=== PATIENT | male | born 1960 | race Caucasian/White ===

== ENCOUNTER 2019-08-14 17:11 | Observation (INO) ==
[2019-08-14] MEDS ORDERED: DUONEB (A & A) INH PRN (20:44)
[2019-08-14 21:49] LABS: BASO# 0.01 X1000 (0.0-0.2); BASO% 0.2 % (0.0-0.8); EOS# 0.01 X1000 (0.0-0.7); EOS% 0.2 % (0.0-10.0); HEMATOCRIT 39.9 % (42.0-52.0); HEMOGLOBIN 13.3 g/dL (14.0-18.0); LYMPH# 0.75 X1000 (1.2-3.4); LYMPH% 11.7 % (20.5-51.1); MCH 30.3 PG (27-31); MCHC 33.3 g/dL (33-37); MCV 90.9 FL (81-99); MONO# 0.08 X1000 (0.11-0.59); MONO% 1.3 % (1.7-9.3); MPV 10.1 FL (7.4-10.4); NEUT# 5.54 X1000 (1.4-6.5); NEUT% 86.6 % (42.2-75.2); PLT 254 X1000 (130-400); RBC 4.39 XMIL (4.7-6.1); RDW 14.5 % (11.5-14.5); WBC 6.39 X1000 (4.8-10.8)
--- NOTE | 2019-08-14 21:51 | Diag Imaging Result Doc PS360 ---
EXAM: CHEST-PORTABLE INDICATION: Pneumonia TECHNIQUE: One view COMPARISON: 08/14/2019 FINDINGS: The lungs are grossly clear. There is no discrete pleural fluid collection or pneumothorax. The cardiomediastinal silhouette and central vasculature are grossly unremarkable. IMPRESSION: No evidence of acute pathology by plain radiograph. Electronically signed by Tom Petit 08/14/2019 9:48 PM
[2019-08-14 21:56] LABS: AGAP 12; ALB/GLOB RATIO 1.1; ALKALINE PHOSPHATASE 73 U/L (32-122); BUN 17 mg/dL (8-22); CALCIUM 8.8 mg/dL (8.8-10.2); CHLORIDE 106 mmol/L (98-107); COSMO 279; CREATININE 0.9 mg/dL (0.7-1.2); ESTIMATED GFR > 60; GLUCOSE 133 mg/dL (70-104); GOT 30 U/L (10-34); GPT 29 U/L (10-44); SODIUM 138 mmol/L (136-145); TCO2 20 mmol/L (25-35); TOTAL BILIRUBIN 0.16 mg/dL (0.20-1.00); TOTAL PROTEIN 7.5 g/dL (6.3-8.3)
[2019-08-14] MEDS ORDERED: MUCINEX PO ONE (22:26)
[2019-08-14] MEDS: TYLENOL PO PRN (23:03)
[2019-08-14] MEDS ORDERED: DUONEB (A & A) INH SCH (23:30)
[2019-08-15] MEDS: DUONEB (A & A) INH SCH ×4 (03:25→21:02)
--- NOTE | 2019-08-15 04:57 | HISTORY AND PHYSICAL ---
PRIMARY CARE PROVIDERS: NKECHI Oliver. CHIEF COMPLAINT: Direct admit for pneumonia. HISTORY OF PRESENT ILLNESS: Mr. Jeffrey is a 58-year-old male who carries a past medical history of bipolar disorder, recently discharged from [facility] for agitated, aggressive behavior, hypertension, congestive heart failure, shunt, GERD, gallstones. The patient went to see his primary care provider today, NKECHI Oliver, requested that he be directly admitted secondary to having pneumonia. However, our over-read from their chest x-ray shows that the lungs appear grossly clear and are stable compared to previous study. There is no fluid collection or pneumothorax. There is a prominent pericardial fat pad noted incidentally. The cardiomediastinal silhouette and central vascular are unremarkable otherwise. This is compared to the same exam that he had done on 08/12/2019. He also had a pulmonary arteriogram on 08/12 that showed no evidence of PE and minimal atelectasis. Per his primary care provider at the bedside, he had been treated 1 month ago with bronchitis, on 08/12 for whatever reason, he was given Augmentin. The patient refused to take it secondary to just being on this medication and it gave him diarrhea, so he refused to take it. He does report that when he lays down flat, he gestures toward his nose and stated that he was unable to breathe when he lies down flat. When I asked him if he was wheezing, he said no. A lot of his answers were prompted by his caregiver, unsure if he is just a poor historian. He did state that there was some coughing, wheezing and shortness of breath once prompted by his physician assistant primary care. He does not know if he has had any temperatures. He does report at times that he gets cold a lot. She does report that he has a learning disability. He is also hard of hearing secondary to a right busted ear drum and she did report on Monday night he had a temperature of 101 degrees, but has not had a temp since then. She also reports O2 sats anywhere from 79 to 80 percent at home. Currently, he is sitting on the side of the bed, he is breathing comfortably. His lung sounds are completely clear and his O2 saturations are 95% on room air and he is afebrile at 98.2 with 18 respirations. PAST MEDICAL HISTORY: Per HPI. PAST SURGICAL HISTORY: Shunt placement. SOCIAL HISTORY: He does have sitters. He is unable to read or write. He does have a learning disability. He is bipolar. No tobacco, alcohol or illicit drug use. FAMILY HISTORY: Unknown. REVIEW OF SYSTEMS: Completely negative except for those mentioned in HPI. PHYSICAL EXAMINATION: VITAL SIGNS: Temperature is 98.2 degrees, heart rate 89, respirations 18, blood pressure 136/84, O2 is 95% on room air. GENERAL: Mr. Jeffrey is a 58-year-old male who is hard of hearing. HEENT: Atraumatic, normocephalic. PERRL. NECK: Supple. Trachea midline. CARDIOVASCULAR: S1, S2 appreciated. No murmurs, gallops, rubs noted. RESPIRATORY: Lung sounds clear bilaterally. ABDOMEN: Soft, nontender, nondistended. Positive bowel sounds 4 quadrants. EXTREMITIES: Lower extremities negative for edema. NEUROLOGIC: The patient is sitting up on the side of the bed, awake, alert, oriented. He does answer questions. However, he is also prompted by the sitter who is at the bedside as well. Unsure if this is due to his intellectual ability. DIAGNOSTICS: Laboratory studies have been ordered. Chest x-ray that was taken today at the doctor's office shows that the lungs are grossly clear, we are currently doing a repeat. ASSESSMENT AND PLAN: 1. Direct admission was for failed outpatient treatment of pneumonia. However, imaging as well as no white count on 08/12, this could be residual from his bronchitis that he had a month ago. Per his caregiver at bedside, he did receive a steroid shot today. We will continue with aggressive pulmonary toilet, supplemental O2 if needed, bronchodilators. We have obtained blood cultures, new CBC and CMP. Try to obtain sputum cultures. 2. Hypertension, stable. 3. Congestive heart failure, not in exacerbation. 4. Gastroesophageal reflux disease. 5. Bipolar disorder with aggressive behaviors. Continue home medications when reconciled. 6. Gallstones, not complaining of any abdominal pain. 7. Further recommendations to follow physician evaluation, laboratory and diagnostic data. Further recommendations to follow laboratory and diagnostic data. Dictated by NKECHI Levine for William Alvarado MD I have performed a face to face diagnostic evaluation. Labs/xrays- reviewed. Exam: Chest-clear CV- regular. Acute bronchitis - Admit, check blood cultures, duo nebs. Dr. Alvarado cc: MD Ludwin Wilkinson CRNP MTDD
--- NOTE | 2019-08-15 06:33 | Diag Imaging Result Doc PS360 ---
CHEST-PORTABLE - 08/15/2019 INDICATION: Pneumonia COMPARISON: 08/14/2019 FINDINGS: Lung volumes are lower. There is some stable strandy atelectasis in the lateral left lung base. No new infiltrates. Heart size remains normal. There is probably a trace left pleural effusion. IMPRESSION: Lower lung volumes, otherwise no change from prior. Electronically signed by Obdulio Strange 08/15/2019 6:31 AM
[2019-08-15 08:01] LABS: HEMATOCRIT 38.7 % (42.0-52.0); HEMOGLOBIN 12.8 g/dL (14.0-18.0); LYMPH# 1.39 X1000 (1.2-3.4); LYMPH% 28.4 % (20.5-51.1); MCHC 33.1 g/dL (33-37); MCV 90.8 FL (81-99); MONO# 0.39 X1000 (0.11-0.59); NEUT# 3.12 X1000 (1.4-6.5); NEUT% 63.6 % (42.2-75.2); PLT 250 X1000 (130-400); RBC 4.26 XMIL (4.7-6.1); RDW 14.4 % (11.5-14.5)
[2019-08-15 08:32] LABS: AGAP 12; ALB/GLOB RATIO 1.1; ALBUMIN 3.9 g/dL (3.5-5.0); ALKALINE PHOSPHATASE 68 U/L (32-122); BUN 20 mg/dL (8-22); CALCIUM 9.3 mg/dL (8.8-10.2); CHLORIDE 106 mmol/L (98-107); COSMO 276; CREATININE 0.8 mg/dL (0.7-1.2); ESTIMATED GFR > 60; GLUCOSE 131 mg/dL (70-104); GOT 26 U/L (10-34); GPT 29 U/L (10-44); POTASSIUM 3.9 mmol/L (3.5-5.1); SODIUM 136 mmol/L (136-145); TCO2 18 mmol/L (25-35); TOTAL BILIRUBIN 0.25 mg/dL (0.20-1.00); TOTAL PROTEIN 7.5 g/dL (6.3-8.3)
[2019-08-15] MEDS: MUCINEX PO SCH ×2 (08:36→22:18)
[2019-08-15] MEDS: TYLENOL PO PRN ×2 (08:36→22:18)
--- NOTE | 2019-08-15 15:15 | PROGRESS NOTE ---
DATE: 08/15/2019 SUBJECTIVE: Patient reports breathing okay. He reports that only when he tries to sleep in a flat position, he gets short of breath. Denies any fever, chills, or cough. OBJECTIVE: Vital Signs: Temperature 98.1 degrees, heart rate 91, respiratory rate 20, blood pressure 133/66, O2 saturation 99% on room air. General Examination: This is a 58-year-old male, lying in bed in no acute distress. Cardiovascular exam: S1 and S2 heard. No murmurs, gallops, or rubs. Regular rate and rhythm. Respiratory exam: Clear bilaterally to auscultation. No work of breathing or using accessory muscles. Abdomen: Soft, nontender to palpation. Bowel sounds present. No organomegaly. Extremities: No clubbing, cyanosis, or edema. Peripheral pulses present in both legs. Neurological exam: Patient alert and oriented x3. Moves 4 extremities. LABORATORY DATA: Reviewed. ASSESSMENT AND PLAN: 1. Failed outpatient treatment for pneumonia. On this patient, it is important to remark the following things: First, he had a CT angiogram of the chest done 3 days ago that did not show any pneumonia, no pulmonary embolism and some atelectasis. Second, this patient's white cell count has been normal all the time and also he was not spiking any fever. Third, he is not requiring any oxygen supplementation, and he is not complaining of shortness of breath. The only concern for me is that he described symptoms that could be probably orthopnea, so at this point what we are going to do is to check an echocardiogram to see if there is any structural abnormality in the heart, and we will go from there. If that exam is negative, she is going to be sent home. 2. Hypertension. That condition is stable. 3. Congestive heart failure. Patient is not on any exacerbation. We will continue to monitor. 4. Gastroesophageal reflux disease. We will continue with Protonix. 5. Bipolar disorder with aggressive behaviors. Will continue with current medications. cc: Antoni Herrmann MD
[2019-08-15] MEDS ORDERED: RISPERDAL PO SCH (21:30)
[2019-08-15] MEDS: TOPAMAX PO SCH (22:17)
[2019-08-15] MEDS: TUMS PO SCH (22:17)
[2019-08-16] MEDS: DUONEB (A & A) INH SCH ×2 (03:50→10:45)
[2019-08-16] MEDS ORDERED: CARAFATE PO SCH (07:00)
[2019-08-16] MEDS: TYLENOL PO PRN (08:46)
[2019-08-16] MEDS: MUCINEX PO SCH (08:47)
[2019-08-16] MEDS: TOPAMAX PO SCH (08:47)
[2019-08-16] MEDS: TUMS PO SCH (08:47)
[2019-08-16] MEDS ORDERED: PRINIVIL PO SCH (09:00)
[2019-08-16] MEDS ORDERED: PRILOSEC PO SCH (09:00)
[2019-08-16 12:01] VITALS: BP 119/68
--- NOTE | 2019-08-16 21:22 | DISCHARGE SUMMARY ---
ADMISSION DATE: 08/14/2019 DISCHARGE DATE: 08/16/2019 PRIMARY CARE PROVIDER: NKECHI Oliver. ADMISSION DIAGNOSES: 1. A direct admit for failed outpatient treatment of pneumonia but imaging showed no white count and no pneumonia, was felt to be a possible bronchitis residual. 2. Hypertension. 3. Congestive heart failure not in exacerbation. 4. Gastroesophageal reflux disease. 5. Bipolar disorder with aggressive behaviors. 6. Gallstones, not complaining of any abdominal pain. DISCHARGE DIAGNOSES: 1. Admitted for failed outpatient treatment for pneumonia but was not found to have pneumonia and a possible bronchitis. 2. Hypertension. 3. Congestive heart failure not in exacerbation. 4. Gastroesophageal reflux disease. 5. Bipolar disorder with aggressive behaviors. SUMMARY OF FINDINGS: This is a 58-year-old male who presented as a direct admit from the primary care physician's office after he was seen there today and felt to have a pneumonia. Our over-read of their chest x-ray showed that the lungs are grossly clear, stable compared to previous study. No white blood cell count. He had a bronchitis about a month ago was still feeling short of breath, had some orthopnea. He was continued on aggressive pulmonary toilet, supplemental O2 as needed, bronchodilators, continued his home medications. He has remained afebrile for greater than 24 hours. His blood cultures were clear. His white count is normal so it is felt that he can safely be discharged home today. He will have home health care. DISCHARGE MEDICATIONS: Will include calcium carbonate chews 500 mg p.o. b.i.d., furosemide 20 mg p.o. every other day, lisinopril 20 mg p.o. daily, omeprazole 40 mg p.o. daily, risperidone 2 mg p.o. at bedtime, Carafate 1 g p.o. a.c. and at bedtime, topiramate 25 mg p.o. b.i.d., cefdinir 300 mg p.o. b.i.d. #14 with no refills and a vitamin D 50,000 units p.o. every 7 days. FOLLOWUP: He will follow with his primary care physician on 08/19/2019 at 2:30 p.m. and again will have home health services. TIME SPENT: 35 minutes. Dictated by NKECHI Donaldson for Antoni Herrmann MD Addendum: Patient seen and examined by myself. Agree with NKECHI note. It reflects my assessment and plan. Patient is being discharged in stable condition. Will be seen by PCP as scheduled. cc: NKECHI Walker MD [facility]
[2019-08-17] MEDS ORDERED: LASIX PO SCH (09:00)
== END 2019-08-16 11:30 | disposition home or self-care (01) ==
LOC: INTOOBSV 17:11 → DIRADM 17:11 → SUATTDRO 17:11 → 3N 20:27
PROVIDERS: ATTEND Internal Medicine

== ENCOUNTER 2019-10-23 18:02 | Inpatient (IN) ==
--- NOTE | 2019-10-23 18:34 | PROVIDER DOCUMENTATION ---
This chart was entered by Kiesha Mojica Scribe, acting as scribe for Mayco Burns MD. HPI-General Adult <KingsleyDenny BeckettFredy - Last Filed: 10/24/19 03:40> - General Source: patient - History of Present Illness -Gen Adult Nature of Presenting Problems: 58yowm brought in via EMS for drooling and shaking. EMS states that his sx began 2 days ago and was also bitten by a spider 2 days ago on his left hand middle finger as well. Patient denies F, SOB, or animal contact and has difficulty swallowing saliva. He has a hx of bipolar disorder and dementia. Location of Pain/Injury: reports: none Pain Radiation: reports: no radiation Quality of Pain: reports: none Severity: reports: mild Onset/Duration: reports: 2 days ago Timing: reports: still present, constant Context/Activities at Onset: reports: light activity Modifying Factors: improves with: nothing Associated Symptoms: denies: fever/chills, shortness of breath Similar Symptoms Previously?: No Recently seen or treated by another doctor?: No <Mayco Burns - Last Filed: 10/30/19 17:33> - General Chief Complaint: Insect Bite/Sting Stated Complaint: DROOLING AND SHAKING FOR 2 DAYS Time Seen by Provider: 10/23/19 18:11 Allergies/Adverse Reactions: Patient Allergies Allergy/AdvReac Type Severity Reaction Status Date / Time aspirin Allergy Severe SWELLING Verified 10/24/19 00:41 Home Medications: Home Medication List Medication Instructions Recorded Confirmed Last Taken Type Furosemide 20 mg PO EVERY OTHER DAY 07/02/19 10/24/19 07/02/19 07:00 History Sucralfate 1 gm PO AC + HS 07/02/19 10/24/19 07/02/19 History Calcium Carbonate Chew [Tums] 500 mg PO BID tab.chew 07/09/19 10/24/19 Unknown Rx Butalbital/APAP/Caffeine [Fioricet] 1 tab PO Q6H PRN 10/24/19 10/24/19 Unknown History Omeprazole 1 tab PO DAILY 10/24/19 10/24/19 Unknown History Topiramate 1 tab PO BID 10/24/19 10/24/19 Unknown History Doxycycline 100 mg PO BID 14 Days #24 10/28/19 Unknown Rx Methylprednisolone [Medrol Dosepak] 4 mg PO DIRECTED 14 Days #1 pkg 10/28/19 Unknown Rx Risperidone [Risperdal] 1 mg PO QAM 30 Days #30 tab 10/28/19 Unknown Rx Review of Systems - Adult - REVIEW OF SYSTEMS - ADULT Constitutional: reports: see HPI. denies: chills, fever Eyes: reports: no symptoms reported Ears, Nose, Mouth & Throat: reports: no symptoms reported Cardiovascular: denies: chest pain, palpitations Respiratory: reports: see HPI. denies: cough, shortness of breath Gastrointestinal: reports: see HPI. denies: abdominal pain, diarrhea Genitourinary: reports: no symptoms reported Musculoskeletal: reports: no symptoms reported Integumentary: reports: see HPI, other (spider bite on left hand digit) Neurological: reports: see HPI, tremors (body shakes) Psychiatric: reports: no symptoms reported Endocrine: reports: no symptoms reported Hematologic/Lymphatic: reports: no symptoms reported Allergic/Immunologic: reports: no symptoms reported All Other Systems: Reviewed and Negative <Mayco Burns - Last Filed: 10/30/19 17:33> Past History - Adult - PAST MEDICAL HISTORY-ADULT Review of Records: reports: Old Records Reviewed, Nursing Assessment Review, Medications Reviewed, Social history reviewed & non-contributory. Major Childhood Illnesses: reports: denies history Cardiovascular: reports: denies history Respiratory: reports: denies history Gastrointestinal: reports: denies history Obstetrical/Gynecological: reports: denies history Genitourinary: reports: denies history Musculoskeletal: reports: denies history Neurological: reports: denies history Psychiatric: reports: bipolar Endocrine/Immune: reports: denies history Other Conditions: reports: denies history - PRIOR SURGERIES/PROCEDURES Surgical/Procedure History: reports: reviewed, not pertinent - IMMUNIZATION STATUS Childhood Immunizations: See Nurse Assessment Flu Vaccine: See Nurse Assessment - FAMILY HISTORY Family History: reviewed, not pertinent - SOCIAL HISTORY Smoking: denies Substance Use: denies Alcohol Use Frequency: occasionally Living Situation: family <Mayco Burns - Last Filed: 10/30/19 17:33> Physical Exam-General - PHYSICAL EXAM-ADULT Initial Vital Signs Reviewed: Yes - CONSTITUTIONAL General Appearance: appears well, alert - EYES Eyes: PERRL/EOMI, pink conjunctivae - HEAD, EARS, NOSE, MOUTH & THROAT HENMT: moist mucous membranes, dental decay, other (missing teeth and red/swollen gums) - NECK Neck: non-tender, full range of motion, supple, normal inspection - RESPIRATORY Respiratory: chest non-tender, lungs clear, normal breath sounds - CARDIOVASCULAR Cardiovascular: normal peripheral pulses, regular rate, rhythm - GASTROINTESTINAL (ABDOMEN) Abdominal Exam: normal bowel sounds, non tender, soft. negative: guarding, rebound - MUSCULOSKELETAL Extremity: non-tender Peripheral Pulses: radial (R): 2+, radial (L): 2+ - SKIN Integumentary: normal color, normal turgor, warm/dry, erythema (left hand middle finger where spider bite occured) - NEUROLOGIC Neurologic: grossly normal - PSYCHIATRIC Psych/Mental Status: normal mood/affect, normal thought content, normal thought process, oriented x 3 <Mayco Burns - Last Filed: 10/30/19 17:33> Progress - PLAN OF CARE/RESULTS Progress/Plan/Lab Results: Vital Signs - 8 hr 10/23/19 18:10 Temperature 97.8 F Pulse Rate 84 Respiratory Rate 16 Blood Pressure 131/86 O2 Sat by Pulse Oximetry 99 Laboratory Results - last 24 hr 10/23/19 10/23/19 18:45 18:45 WBC 4.57 L RBC 4.52 L Hgb 13.5 L Hct 41.5 L MCV 91.8 MCH 29.9 MCHC 32.5 L RDW Std Deviation 14.4 Plt Count 238 MPV 10.3 Immature Gran % (Auto) 0.0 Neut % (Auto) 38.1 L Lymph % (Auto) 48.4 Moore % (Auto) 9.2 Eos % (Auto) 3.9 Baso % (Auto) 0.4 Immature Gran # (Auto) 0.00 Neut # (Auto) 1.74 Lymph # (Auto) 2.21 Moore # (Auto) 0.42 Eos # (Auto) 0.18 Baso # (Auto) 0.02 Sodium 139 Potassium 3.8 Chloride 104 Carbon Dioxide 21 L Anion Gap 14 BUN 18 Creatinine 0.8 Estimated GFR/1.73 m2 > 60 BUN/Creatinine Ratio 23 Glucose 93 Calculated Osmolality 279 Calcium 9.3 Total Bilirubin 0.24 AST 16 ALT 27 Alkaline Phosphatase 90 Total Protein 6.9 Albumin 4.0 Globulin 2.9 Albumin/Globulin Ratio 1.4 Orders Category Date Time Status CT NECK W/WO CONTRAST [CT] Stat Exams 10/23/19 18:26 Ordered CBC WITH ELECTRONIC DIFF [HEME] Stat Lab 10/23/19 18:45 Completed CMP [COMPREHENSIVE METABOLIC PANEL] [CHEM] Stat Lab 10/23/19 18:45 Completed Result Diagrams: 10/23/19 18:45 10/23/19 18:45 - EKG 1 Time of EKG reading by physician:: 03:37 EKG Read and Signed by:: Denny Wynn EKG Interpretation (*Must complete 3 of following elements*): Normal Rate: 78 Rhythm: nsr [place]: normal QRS: normal NC Interval: normal ST Wave: normal <Denny Wynn - Last Filed: 10/24/19 03:40> - PLAN OF CARE/RESULTS Progress/Plan/Lab Results: Vital Signs - 8 hr 10/23/19 18:10 Temperature 97.8 F Pulse Rate 84 Respiratory Rate 16 Blood Pressure 131/86 O2 Sat by Pulse Oximetry 99 Result Diagrams: 10/25/19 06:54 10/25/19 06:54 - CHANGE OF SHIFT REPORT (ED Provider) 1 Report Given and Care Transferred to:: Dr. Wynn Time of Transfer: 19:00 Items Pending: Labs, CT/MRI Results <Mayco Burns - Last Filed: 10/30/19 17:33> Departure - Departure Certified Medical Emergency: Emergent <Denny Wynn - Last Filed: 10/24/19 03:40> - Departure Date of Disposition Decision: 10/23/19 Time of Disposition Decision: 22:35 Certified Medical Emergency: Emergent - Critical Care Note This patient required my direct & personal management of CC.: No <Mayco Burns - Last Filed: 10/30/19 17:33> - Departure DIAGNOSIS: CVA (cerebral vascular accident) Qualifiers: CVA mechanism: unspecified Qualified Code(s): I63.9 - Cerebral infarction, unspecified Spider bite Qualifiers: Encounter type: initial encounter Injury intent: undetermined intent Qualified Code(s): T63.304A - Toxic effect of unspecified spider venom, undetermined, initial encounter Disposition: ADMITTED INPATIENT 09 Condition: Stable Attestation - Physician/ SIM Attestation Patient care was provided by Advanced Practice Provider:: No The physician spent face to face time with patient:: Yes Advanced Practice Provider documentation review:: Supervising physician onsite and consulted in the evaluation and care of this patient. The physician did have a face to face encounter with the patient. - Physician/ SIM Attestation #2 Patient care was provided by Advanced Practice Provider:: No The physician spent face to face time with patient:: Yes Advanced Practice Provider documentation review:: Supervising physician onsite and consulted in the evaluation and care of this patient. The physician did have a face to face encounter with the patient. #3 Patient care was provided by Advanced Practice Provider:: No The physician spent face to face time with patient:: Yes Advanced Practice Provider documentation review:: Supervising physician onsite and consulted in the evaluation and care of this patient. The physician did have a face to face encounter with the patient. <Mayco Burns - Last Filed: 10/30/19 17:33> This chart was documented by the indicated scribe, (Kiesha Mojica Scribebony) and accurately reflects the services I performed and decisions made by me, Mayco Burns MD, as attested by the provider's signature.
[2019-10-23 18:52] LABS: BASO# 0.02 X1000 (0.0-0.2); BASO% 0.4 % (0.0-0.8); EOS# 0.18 X1000 (0.0-0.7); EOS% 3.9 % (0.0-10.0); HEMATOCRIT 41.5 % (42.0-52.0); HEMOGLOBIN 13.5 g/dL (14.0-18.0); LYMPH# 2.21 X1000 (1.2-3.4); LYMPH% 48.4 % (20.5-51.1); MCH 29.9 PG (27-31); MCHC 32.5 g/dL (33-37); MCV 91.8 FL (81-99); MONO# 0.42 X1000 (0.11-0.59); MONO% 9.2 % (1.7-9.3); MPV 10.3 FL (7.4-10.4); NEUT# 1.74 X1000 (1.4-6.5); NEUT% 38.1 % (42.2-75.2); PLT 238 X1000 (130-400); RBC 4.52 XMIL (4.7-6.1); RDW 14.4 % (11.5-14.5); WBC 4.57 X1000 (4.8-10.8)
[2019-10-23 19:35] LABS: AGAP 14; ALB/GLOB RATIO 1.4; ALKALINE PHOSPHATASE 90 U/L (32-122); BUN 18 mg/dL (8-22); CALCIUM 9.3 mg/dL (8.8-10.2); CHLORIDE 104 mmol/L (98-107); COSMO 279; CREATININE 0.8 mg/dL (0.7-1.2); ESTIMATED GFR > 60; GLUCOSE 93 mg/dL (70-104); GOT 16 U/L (10-34); GPT 27 U/L (10-44); POTASSIUM 3.8 mmol/L (3.5-5.1); SODIUM 139 mmol/L (136-145); TCO2 21 mmol/L (25-35); TOTAL BILIRUBIN 0.24 mg/dL (0.20-1.00); TOTAL PROTEIN 6.9 g/dL (6.3-8.3)
--- NOTE | 2019-10-23 20:13 | Diag Imaging Result Doc PS360 ---
EXAM: CT NECK W/CONTRAST HISTORY: neck mass TECHNIQUE: CT NECK WITH INTRAVENOUS CONTRAST FINDINGS: No precervical soft tissue swelling. No sinus opacification. No air-fluid levels. The parotid and submandibular glands are symmetric. Thyroid is not enlarged. Normal larynx. No neck mass marked. Small scattered lymph nodes. IMPRESSION: No neck mass identified. This exam was performed using automated exposure control, adjustment of mA or kV according to patient size, and/or use of iterative reconstruction technique. Electronically signed by Luis Mendez 10/23/2019 8:11 PM
[2019-10-23] MEDS ORDERED: NS 1,000 ML IV PRN (20:27)
--- NOTE | 2019-10-23 20:58 | Diag Imaging Result Doc PS360 ---
EXAM: CHEST-PORTABLE HISTORY: stroke like symptoms TECHNIQUE: Single view COMPARISON: 09/19/2019 FINDINGS: Poor inspiratory effort. The heart is not enlarged. The vessels are not distended. There are no infiltrates. No effusion identified. IMPRESSION: Negative exam. Electronically signed by Luis Mnedez 10/23/2019 8:55 PM
--- NOTE | 2019-10-23 21:25 | Diag Imaging Result Doc PS360 ---
EXAM: CT HEAD W/O CONTRAST HISTORY: stroke like symptoms TECHNIQUE: CT head without contrast COMPARISON: 09/19/2019 FINDINGS: No parenchymal hemorrhage. No epidural or subdural hematoma. No subarachnoid hemorrhage. No mass identified on this noncontrasted exam. No hydrocephalus. No sinus opacification. IMPRESSION: No hemorrhage. Negative brain CT without contrast. This exam was performed using automated exposure control, adjustment of mA or kV according to patient size, and/or use of iterative reconstruction technique. Electronically signed by Luis Mendez 10/23/2019 9:22 PM
[2019-10-23 21:42] LABS: URINE SOURCE CLEAN CATCH
[2019-10-23 21:46] LABS: BILIRUBIN URINE NEGATIVE (NEGATIVE); BLOOD URINE NEGATIVE (NEGATIVE); COLOR YELLOW; GLUCOSE URINE NEGATIVE (NEGATIVE); KETONE URINE TRACE mg/dL (NEGATIVE); LEUKOCYTES URINE NEGATIVE (NEGATIVE); NITRITE URINE NEGATIVE (NEGATIVE); PH URINE 6.5; PROTEIN URINE NEGATIVE (NEGATIVE); SP GRAVITY URINE 1.047; TURBIDITY URINE CLEAR (CLEAR); UR EPITHELIAL CELLS <10 /HPF (<10); URINE BACTERIA NEGATIVE /HPF; URINE RBC <10 /HPF (<10); URINE WBC <10 /HPF (<10); UROBILINOGEN URINE NORMAL (NORMAL)
[2019-10-23 22:16] LABS: UR AMPHETAMINES QUAL NONE DETECTED (NONE DETECT); UR BARBITUATES QUAL PRESUMPTIVE POSITIVE (NONE DETECT); UR BENZODIAZEPIN QUAL NONE DETECTED (NONE DETECT); UR CANNABINOIDS QUAL NONE DETECTED (NONE DETECT); UR COCAINE QUAL NONE DETECTED (NONE DETECT); UR METHADONE QUAL NONE DETECTED (NONE DETECT); UR OPIATES QUAL NONE DETECTED (NONE DETECT); UR OXYCODONE QUAL NONE DETECTED (NONE DETECT); UR PCP QUAL NONE DETECTED (NONE DETECT)
[2019-10-23 22:19] LABS: PROTIME 13.3 Seconds (11.0-16.0); PTT 30.7 Seconds (22.3-41.8)
--- NOTE | 2019-10-24 02:09 | HISTORY AND PHYSICAL ---
PRIMARY CARE PROVIDER: Catherine Stone NP. CHIEF COMPLAINT: Face and left-sided weakness; also, drooling for the past 2 days. HISTORY OF PRESENTING ILLNESS: A 58-year-old male with a history of hypertension, bipolar disease disorder, hypertension, CHF, presented to emergency department with 2 days history of having face weakness and drooling; also, left-sided weakness. The patient states that this has been going on for the past 2 days. The patient is a poor historian. However, patient states that his symptoms are worsening and he could hardly walk. At the time of my examination, he had denied any headache, fever, chills, chest pain, shortness of breath or any weight changes, but complained of face weakness, drooling and left-sided weakness. PAST MEDICAL HISTORY: Includes hypertension, bipolar disorder, CHF. PAST SURGICAL HISTORY: None. ALLERGIES: Aspirin. CURRENT MEDICATIONS INCLUDE: Furosemide 20 mg every other day, omeprazole 40 mg p.o. daily, risperidone 2 mg with meals and at night, sucralfate 1 g p.o. with meals and at night, Topamax 50 mg p.o. with meals and at night. SOCIAL HISTORY: No history of smoking, alcohol or illicit drug use. FAMILY HISTORY: No history of coronary disease. REVIEW OF SYSTEMS: Fourteen-point review of system is as in HPI. Other systems negative. PHYSICAL EXAMINATION: GENERAL: The patient is somewhat dishevelled, but he is without any respiratory distress. VITAL SIGNS: Temperature 97.8 degrees, pulse 84, respirations 16, blood pressure 131/86. HEENT: Atraumatic, normocephalic. Extraocular movements intact. PERRLA. He has poor correction. NECK: No masses. CHEST: Clear to auscultation. CARDIOVASCULAR: Regular rate and rhythm. ABDOMEN: Soft, positive bowel sounds. EXTREMITIES: No edema. NEUROLOGIC: He is awake, alert, oriented x3. GENITOURINARY: No bladder distention. SKIN: Warm. LABORATORIES AND STUDIES: WBC 4.57, hemoglobin 13.5, hematocrit 41.5, platelets 238,000. Sodium 139, potassium 3.8, chloride 104, CO2 is 21, BUN is 18, creatinine 0.8. Glucose 93. CT of the head, no hemorrhage. Negative brain CT. ASSESSMENT: A 58-year-old male with a history of hypertension, bipolar disorder, and congestive heart failure, who was brought to the emergency department due to patient having face weakness, drooling, and left-sided weakness. He was seen in the ER and due to suspicion of possible CVA, he will need admission for further management. 1. Face and left-sided weakness. Will need to rule out cerebrovascular accident. 2. Bipolar disorder. 3. Hypertension. PLAN: 1. We will admit patient to medical floor with telemetry. 2. We will keep patient NPO and schedule an MRI of the brain. 3. We will consult Neurology. 4. We will restart patient's psychiatric medicines. 5. Monitor blood pressure closely. 6. Put patient on DVT prophylaxis with SCDs. 7. We will continue to follow and reassess, make further recommendation based on patient's clinical course. cc: William Alvarado MD
[2019-10-24] MEDS ORDERED: TYLENOL PO PRN (03:27)
--- NOTE | 2019-10-24 05:45 | EKG Report ---
Test Performed on : 10/24/2019 03:37:15 AM Test Reason : Stroke like symptoms Blood Pressure : / mmHG Vent. Rate : 078 BPM Atrial Rate : 078 BPM P-R Int : 190 ms QRS Dur : 076 ms QT Int : 380 ms P-R-T Axes : 034 -08 007 degrees QTc Int : 433 ms Normal sinus rhythm. Normal ECG When compared with ECG of 19-SEP-2019 13:36, No significant change was found Unconfirmed Result
[2019-10-24] MEDS: PRILOSEC PO SCH (06:19)
[2019-10-24] MEDS: CARAFATE PO SCH ×4 (06:19→20:09)
[2019-10-24] MEDS ORDERED: RISPERDAL PO SCH (07:00)
--- NOTE | 2019-10-24 09:09 | Diag Imaging Result Doc PS360 ---
EXAM: MRI BRAIN W/WO CONTRAST HISTORY: cva TECHNIQUE: MRI brain with and without intravenous contrast. Axial, sagittal, and coronal images obtained in multiple sequences. These are followed by post contrasted axial and coronal images. COMPARISON: CT from 10/23/2019 and MRI from 07/04/2019 FINDINGS: No recent infarct. There are tiny areas of increased signal in the deep white matter similar to the prior MRI. No mass or midline shift. No enhancing lesion on the post contrasted images. No hydrocephalus. No epidural or subdural fluid collection. No sinus opacification and no air-fluid levels. Normal orbits. IMPRESSION: Stable exam. No recent infarct. Electronically signed by Luis Mendez 10/24/2019 9:07 AM
--- NOTE | 2019-10-24 10:02 | PROGRESS NOTE ---
DATE: 10/24/2019 SUBJECTIVE: Mr. Jeffrey, a 58-year-old, presented on 10/24/2019 or early this morning, face and left-sided weakness. He has been drooling for a couple days. A 58-year-old with history of hypertension, bipolar disease disorder, hypertension, congestive heart failure, presented to the emergency department with a 2-day history of having face weakness and drooling, left-sided weakness. Patient states that it has been going on for the past couple days. Patient is a poor historian, states that his symptoms are worsening. He could hardly walk. At the time of examination, denied any headache, fever, chills, chest pain, shortness of breath or any weight change. Complained of face weakness, drooling, left-sided weakness. Past medical history includes hypertension, bipolar disorder, and congestive heart failure. Allergy to aspirin. Negative brain CT. CT of the head, no hemorrhage. His main complaint is he is drooling. We are going to do a swallow study and see if he can eat. OBJECTIVE: Vital signs: Temperature 98.7 degrees, pulse 80, respirations 16, blood pressure 124/80. HEENT: Pupils are equal and round. Lungs are clear in all lung jules. Cardiovascular: Regular rhythm and rate without murmur or S3. Abdomen is soft. Skin is warm and dry. He had a brain MRI done, stable exam, no recent infarct noted. ASSESSMENT AND PLAN: 1. His eyes, periauricular muscles seem to be strong, but this very well could be Terrell's paralysis or facial nerve paralysis, so we will put him on some Zovirax and I am going to give him some prednisone as well. 2. Bipolar illness. Aware. He is on risperidone 2 mg p.o. before meals and at bedtime. cc: Mohit Lake MD
--- NOTE | 2019-10-24 11:04 | NEUROLOGY CONSULTATION ---
DATE: 10/24/2019 HISTORY OF PRESENT ILLNESS: Mr. Jeffrey is 58 years old and he was admitted with reports of drooling and weakness. History from the patient is that he was doing pretty well until 3 days or so ago when he had a spider bite to the left middle finger. There was a good bit of discomfort there. Shortly after that, he began to notice drooling, mostly on the left side of his mouth. He did not have trouble with chewing, swallowing, or speech. He did not initially notice focal weakness. Later, he thought that he was weak on the left side. He believes he is better today. PAST MEDICAL HISTORY: Past history is remarkable for hypertension, heart failure, bipolar disorder, headache. He reports no prior diagnosed stroke, seizure, serious head injury or other neurologic event. He denies illicit drug use and ethanol abuse. MEDICATIONS: Home medicine list includes butalbital product (he told me he takes that daily for headache), risperidone, topiramate. He was not able to tell me the reasons that he takes risperidone and topiramate. There are several other medicines listed, but nothing else that likely would have significant DIABETES NURSE effect. WORKUP: Includes noncontrast CT of the head showing nothing remarkable. Brain MRI done today with and without contrast shows typical age-related white matter changes but nothing focal or acute, no bleeding, no mass, nothing to explain drooling, facial weakness, left limb weakness. Computer record shows 06/20/2019 echocardiogram unremarkable with no source of embolus, ejection fraction 60%. On 07/04/2019 brain MRI was unremarkable and scan today shows no change. Labs showed urine drug screen positive for barbiturates, consistent with his report that he uses butalbital daily. Chemistry was unremarkable. He has been afebrile. Heart rate has ranged 70s to 90s. Systolic blood pressures have ranged 100 to 130s. PHYSICAL EXAMINATION: General: On exam, Mr. Jeffrey is awake, alert, attentive. He is oriented to all parameters. Neuro: Speech is a little bit dysarthric but easily understood and seems more consistent with his poor dentition than with a neuromuscular problem. I did observe a little bit of drooling, sometimes from the left and sometimes from the right corner of his mouth. Tongue is midline. Gag is intact. Palate is midline. Dentition is poor. Oropharynx is otherwise unremarkable. The left nasolabial fold is a little bit less prominent than the right but facial motility is good bilaterally. Forehead wrinkling is equal on the left and right. Extraocular movements are normal. Visual jules are full to confrontational finger counting. Shoulder shrug is good. Strength is normal in the arms and legs. He did well on [id number] testing bilaterally. Sensation is intact to pinprick testing over the limbs. Gait is unremarkable. He was able to squat and rise without assistance. He has some irregular movement in the limbs, a little bit in the face, more prominent with alternating hip abduction and adduction, features typical of dyskinesia. Neck is supple. IMPRESSION: 1. Drooling. Explanation is not certain. I believe that he has swallowing evaluation ordered. If he passes that I would go ahead and let him eat. We can treat this symptomatically with glycopyrrolate and follow up as an outpatient if problems persist. I do not find any other evidence of cholinergic excess. 2. Spider bite. Sialorrhea is reported after bite from several spiders and management, if this excess salivation is an isolated feature, is supportive. There is no evidence of bleeding or coagulopathy. We can check CK if he develops actual muscle weakness or limb pain, but there is no evidence of rhabdomyolysis and renal function is good. 3. Clinical evidence of dyskinesia, likely tardive dyskinesia. He was not able to discuss his prior medication management in detail. He does not recall any recent medication change. I do not know if this movement is recent onset or longstanding. I do not think we need to address this further now. 4. Slight facial asymmetry and good facial motility bilaterally, no definite focal neurologic deficit in the limbs, negative brain MRI. I don't see evidence of DIABETES NURSE explanation for his symptoms. I don't think we need further neurologic workup. So, I do not have any urgent suggestion. I would continue to follow clinically, treat symptomatically, consider glycopyrrolate trial and expect he will be back to baseline soon. cc: MD PRANAV Preston III
[2019-10-24] MEDS: PREDNISONE PO SCH ×2 (12:16→20:09)
[2019-10-24] MEDS: LASIX PO SCH (12:16)
[2019-10-24] MEDS: ZOVIRAX PO SCH ×2 (12:16→20:09)
[2019-10-25] MEDS: PRILOSEC PO SCH (06:13)
[2019-10-25] MEDS: ZOVIRAX PO SCH (06:13)
[2019-10-25] MEDS: CARAFATE PO SCH ×4 (06:13→20:33)
[2019-10-25 07:28] LABS: BASO# 0.01 X1000 (0.0-0.2); BASO% 0.2 % (0.0-0.8); EOS# 0.01 X1000 (0.0-0.7); EOS% 0.2 % (0.0-10.0); HEMATOCRIT 41.2 % (42.0-52.0); HEMOGLOBIN 13.6 g/dL (14.0-18.0); LYMPH# 1.76 X1000 (1.2-3.4); LYMPH% 34.4 % (20.5-51.1); MCV 90.9 FL (81-99); MONO# 0.35 X1000 (0.11-0.59); MONO% 6.8 % (1.7-9.3); MPV 10.5 FL (7.4-10.4); NEUT# 2.98 X1000 (1.4-6.5); NEUT% 58.4 % (42.2-75.2); PLT 254 X1000 (130-400); RBC 4.53 XMIL (4.7-6.1); RDW 14.3 % (11.5-14.5); WBC 5.11 X1000 (4.8-10.8)
[2019-10-25 07:57] LABS: AGAP 15; BUN 17 mg/dL (8-22); CALCIUM 9.5 mg/dL (8.8-10.2); CHLORIDE 103 mmol/L (98-107); COSMO 278; CREATININE 0.7 mg/dL (0.7-1.2); ESTIMATED GFR > 60; GLUCOSE 105 mg/dL (70-104); SODIUM 138 mmol/L (136-145); TCO2 20 mmol/L (25-35)
[2019-10-25] MEDS: RISPERDAL PO SCH ×2 (08:56→20:34)
[2019-10-25] MEDS: TOPAMAX PO SCH ×2 (08:56→20:33)
[2019-10-25] MEDS: PREDNISONE PO SCH ×2 (08:56→20:33)
[2019-10-25] MEDS ORDERED: TOPAMAX PO SCH (09:00)
--- NOTE | 2019-10-25 09:31 | PROGRESS NOTE ---
DATE: 10/25/2019 SUBJECTIVE: He was sleeping, did not arouse during exam. He had eaten about half of his breakfast. OBJECTIVE: Vital Signs: Temperature 98.7 degrees, pulse 70, respirations 17, blood pressure 119/78. HEENT: Pupils are equal and round. Lungs: Clear in all lung jules. Cardiovascular: Regular rhythm and rate without murmur or S3. Abdomen: Soft. Skin: Warm and dry. Urine output was not recorded. LABORATORY DATA: Reviewed from yesterday. ASSESSMENT AND PLAN: 1. Drooling, explanation not certain. He appears to be swallowing okay and eating. He ate about half of his breakfast. 2. Spider bite. Sialorrhea reported after a bite from several spiders. No evidence of bleeding or coagulopathy. No evidence of rhabdomyolysis and renal function was good. 3. Question whether he had Terrell's paralysis and weakness in his face. I am not convinced he has that. 4. Likely tardive dyskinesia. Dr. Ponce has evaluated. 5. Facial asymmetry. He has good motility bilaterally. No definite neurologic deficits. Negative brain scan on MRI. 6. Discussing discharge plans, I think he has a sitter who is taking care of him. He takes Risperdal 2 mg p.o. b.i.d., Carafate 1 g p.o. before meals and at bedtime, Topamax 50 mg p.o. b.i.d., Lasix 20 mg every other day, acyclovir 400 mg, I put him on q.8h. I will stop that. I was questioning possible Terrell's paralysis. I will discontinue that. cc: Mohit Lake MD
--- NOTE | 2019-10-25 14:19 | NEUROLOGY PROGRESS NOTE ---
DATE: 10/25/2019 Mr. Jeffrey reports his drooling has improved. He does not have any new complaints. On exam, I did not notice drooling today. Tongue is midline. Palate is midline. The left nasolabial fold is less prominent than the right, but there is good facial motility bilaterally. Forehead wrinkling is variably more prominent on the left. He has full eye movements. Neck is supple. IMPRESSION: Reported recent onset of drooling, possibly increased salivation, possibly cholinergic effect of tick bite, which apparently shortly preceded onset of symptoms. I do not see any other neuromuscular problem. Workup has been negative including brain MRI. I do not think we need anything further from neurologic standpoint now. I will be glad to see him again if symptoms persist or if he develops new neurologic problem. Thanks for asking Neurology to see Mr. Jeffrey. cc: MD PRANAV Preston III
[2019-10-26] MEDS: PRILOSEC PO SCH (06:00)
[2019-10-26] MEDS: CARAFATE PO SCH ×4 (06:00→21:54)
[2019-10-26] MEDS: LASIX PO SCH (09:31)
[2019-10-26] MEDS: PREDNISONE PO SCH ×2 (09:32→21:54)
[2019-10-26] MEDS: TOPAMAX PO SCH ×2 (09:32→21:54)
[2019-10-26] MEDS: RISPERDAL PO SCH ×3 (09:32→19:51)
--- NOTE | 2019-10-26 10:09 | PROGRESS NOTE ---
DATE: 10/26/2019 Mr. Jeffrey is sitting up in a chair. His says his mouth kind of hurts to chew and eat. I do not see any lesions in the oral mucosa and he is not drooling as bad. He feels like the medicine is what is causing it, the Risperdal. Recently he was increased on his Risperdal I think to 2 mg twice a day, so I am going to go back to his 1 mg once a day. I think he has some dystonia in the mouth and some tardive dyskinesia symptoms. OBJECTIVE: Temperature 97.7 degrees, pulse 70, respirations 19, blood pressure 112/65. Pupils are equal and round. Lungs are clear in all lung jlues. Cardiovascular exam, regular rate without murmur or S3. Urine output is 800 mL. ASSESSMENT AND PLAN: 1. Recent onset of drooling, possibly increased salvation, possibly cholinergic effective of a tick bite which apparently shortly preceded onset of symptoms. He seems to think the medication is working against him, so I will decrease the Risperdal. His workup is negative including MRI brain scan. 2. There was also report of a possible spider bite, so I am not sure and no evidence of bleeding or coagulopathy. He had no evidence of rhabdomyolysis. 3. There is also a question whether he had Etrrell's paralysis. Exam is not consistent with Terrell's paralysis. His periorbital muscles are strong and he is improving fairly quickly. 4. Tardive dyskinesia possible. 5. He was admitted on 10/23. He has a history of bipolar disorder and hypertension, history of congestive heart failure. CURRENT ORDERS: He is getting Lasix 20 mg every other day, Prilosec 40 mg a day, prednisone 20 mg p.o. b.i.d., Carafate 1 g q.a.c. and at bedtime, Topamax 50 mg b.i.d. and we have cut him down to Risperdal only 1 mg q.a.m. He is asking when he can go home. Client Administrator involved. cc: Mohit Lake MD
[2019-10-27] MEDS: CARAFATE PO SCH ×4 (06:24→20:03)
[2019-10-27] MEDS: PRILOSEC PO SCH (06:24)
[2019-10-27] MEDS: RISPERDAL PO SCH (09:51)
[2019-10-27] MEDS: TOPAMAX PO SCH ×2 (09:51→20:03)
[2019-10-27] MEDS: PREDNISONE PO SCH ×2 (09:51→20:03)
--- NOTE | 2019-10-27 12:35 | PROGRESS NOTE ---
DATE: 10/27/2019 SUBJECTIVE: Mr. Jeffrey is feeling better. He is eating well. He does not feel like he is drooling as much. We had cut down on his Risperdal. OBJECTIVE: Vital Signs: Temp is 98.2 degrees, pulse 70, respirations 20, blood pressure 113/64. HEENT: Pupils are equal and round. Lungs: Clear in all lung jules. Cardiovascular: Regular rhythm and rate without murmur or S3. Abdomen: Soft. Skin: Warm and dry. ASSESSMENT AND PLAN: 1. Reported recent onset of drooling, possible increased elevation could be a cholinergic effect of a tick bite, but not sure about that, but also could be some symptoms related to his Risperdal, and so I have decreased the Risperdal. He seems to be feeling better with that. 2. There is a report of possible spider bite. I do not know if that was a tick bite or a spider bite. 3. Possible tardive dyskinesia, which seems to be improved. 4. History of bipolar disorder. 5. I think he can be discharged home tomorrow. REVIEW OF ORDERS: He is on Topamax 50 mg b.i.d., Carafate 1 gram p.o. before meals and at bedtime, Risperdal 1 mg every a.m., prednisone 20 mg p.o. b.i.d., Prilosec 40 mg a day, and Lasix 20 mg p.o. every other day. He is on a regular diet. Continue present orders. Hopefully home tomorrow. Electrolytes and liver functions are unremarkable. cc: Mohit Lake MD
[2019-10-28 04:06] VITALS: BP 122/73
[2019-10-28] MEDS: PRILOSEC PO SCH (06:11)
[2019-10-28] MEDS: CARAFATE PO SCH (06:11)
[2019-10-28] MEDS: LASIX PO SCH (09:13)
[2019-10-28] MEDS: RISPERDAL PO SCH (09:14)
[2019-10-28] MEDS: TOPAMAX PO SCH (09:14)
[2019-10-28] MEDS: PREDNISONE PO SCH (09:14)
--- NOTE | 2019-10-28 09:29 | DISCHARGE SUMMARY ---
ADMISSION DATE: 10/24/2019 DISCHARGE DATE: 10/28/2019 HISTORY OF PRESENT ILLNESS: Mr. Jeffrey is a 58-year-old, who came in with left-sided weakness and drooling for the past couple days. A 58-year-old with a history of hypertension, bipolar disease, congestive heart failure, presented to the emergency room with a 2-day history of having face weakness and drooling on the left side. The patient states that this has been going on for a couple days, but he is not a good historian. States his symptoms were worsening and he could hardly walk. At the time of exam, he denied headache, fever, chills, chest pain, shortness of breath or weight changes. PAST MEDICAL HISTORY: 1. Hypertension. 2. Bipolar disease. 3. Congestive heart failure. ALLERGIES: Aspirin. HOSPITAL COURSE: So, admitted with face and left-sided weakness and felt need to rule out cerebrovascular accident, history of bipolar disorder and hypertension. He had a neck CT done. There was no mass identified or infection. He had a head CT without contrast. Negative brain CT. No sign of acute process. He had a brain MRI, stable exam. No sign of recent infarct. Neurology was asked to see, Dr. Marquis Ponce. He had complained of drooling. Dr. Ponce felt the explanation was uncertain. Swallow evaluation was ordered and he seemed to be able to swallow okay. He also complained of thick saliva. He apparently had a spider bite on his left hand and he could have sialorrhea, increased saliva. It is not sure whether he had a tick bite or spider bite. There was no evidence of bleeding or coagulopathy. He also has had recently increased his Risperdal up from I think 1 mg a day to 2 mg twice a day. So, there was a question of whether it could be some tardive dyskinesia, and he said he has trouble sometimes opening up his mouth. Pictures and radiographically did not show any sign of a CVA. He seemed to be clinically improving, and he was able to eat, although still complaining of hard to get his mouth open and increased saliva, but he very much wanted to go home. I did adjust his Risperdal down to 1 mg daily again. DISCHARGE MEDICATIONS: 1. Lasix 20 mg every other day. 2. Prilosec 40 mg a day. 3. We had him on some prednisone. 4. I will put him on Medrol Dosepak, and taper that down. 5. Risperdal 1 mg p.o. q.a.m. 6. Carafate 1 g before meals and at bedtime. 7. Topamax. He is on 50 mg b.i.d. DISCHARGE INSTRUCTIONS: He will follow up with his primary care physician. I believe he has a sitter that helps her, but he is followed by Dr. Catherine Stone. So, I may continue and give him another prescription for doxycycline and just do another week course or even 2-week course of doxycycline in case this was a tick bite. cc: Mohit Lake MD
--- NOTE | 2019-10-28 12:26 | NEUROLOGY PROGRESS NOTE ---
DATE: 10/28/2019 SUBJECTIVE: Mr. Jeffrey continues to have significantly less salivation and there is no drooling. He reports sometimes a sense that he cannot move his mouth well. OBJECTIVE: On exam, I did not notice drooling today. Tongue is midline. Palate elevates in the midline. Left nasolabial fold continues less prominent than the right with no significant change since admission. Facial motility is good bilaterally. He has full tongue excursions. I observed him using a straw, having a sip of water and swallowing without difficulty. IMPRESSION: Recent drooling and concern for increased salivation appears to be resolved. The dyskinesia is not prominent this morning. I agree with Dr. Lake's plans for reducing risperidone and following clinically. I will be glad to see Mr. Jeffrey as an outpatient, if needed. cc: MD PRANAV Preston III
== END 2019-10-28 13:43 | disposition home health service (06) | DRG 92 ==
LOC: ED 18:02 → 3N 10-24 01:25 → SUATTDRO 10-24 01:25
PROVIDERS: ATTEND Emergency Medicine